=== PATIENT | female | born 1940 | race Native Hawaiian/Other Pacific Islander ===

== ENCOUNTER → 2020-11-11 | Day surgery (SDC) | payer MEDICARE, OTHER ==
[2020-11-09 11:04] LABS: COVID AG,FIA SOURCE NASOPHARYNGEAL
[~2020-11-11] MED LIST: AMLO-258 PO; ASPI-1450 PO; ATOR20TA86 PO; BRIM155OS OU; CHONDR SULF A SOD/HYALURONATE 1.05 ML KIT IO ONE; CRAN500T2 PO; DORZ210OS OU; EPINEPHrine 1:1,000 [1 MG/ML] AMP IM ONE; FURO20 PO; FentaNYL CITRATE PF 100 MCG/2 ML VIAL IVP ONE; HYDR50TA36 PO; KETOROLAC TROMETHAMINE 0.5% 5 ML OPHTHALMIC SOLUTION ONE; LIDOCAINE/PF 1% 2 ML VIAL IM ONE; LOSA50TA37 PO; METF-960 PO; METO25 PO; MIDAZOLAM HCL 2 MG/2 ML VIAL IVP ONE; MOXIFLOXACIN HCL 0.5% 3 ML OPHTHALMIC SOLUTION ONE; PHENYLEPHRINE HCL 2.5% 2 ML OPHTHALMIC SOLUTION ONE; POVIDONE-IODINE 10% 15 ML SOLUTION UD TP ONE; RINGERS SOLUTION,LACTATED 500 ML IV ONE; TRAV5DRO OU; TROPICAMIDE 1% 2 ML OPHTHALMIC SOLUTION ONE; VIT1TAB.9 PO
[2020-11-11] MEDS: KETOROLAC TROMETHAMINE 0.5% 5 ML OPHTHALMIC SOLUTION OD SCH ×3 (09:37→09:49)
[2020-11-11] MEDS: PHENYLEPHRINE HCL 2.5% 2 ML OPHTHALMIC SOLUTION OD SCH ×3 (09:38→09:49)
[2020-11-11] MEDS: TROPICAMIDE 1% 2 ML OPHTHALMIC SOLUTION OD SCH ×3 (09:38→09:49)
[2020-11-11] MEDS: MOXIFLOXACIN HCL 0.5% 3 ML OPHTHALMIC SOLUTION OD SCH ×3 (09:38→09:49)
[2020-11-11 09:46] LABS: GLUCOMETER DEV NAME(LOC) SDS.; GLUCOSE,POINT OF CARE 166 MG/DL (70-110)
== END | disposition home or self-care (01) ==
LOC: SURGERY 08:44
PROVIDERS: ATTEND Ophthalmology
DX: E11.36 Type 2 diabetes mellitus with diabetic cataract (principal); I10 Essential (primary) hypertension; H25.11 Age-related nuclear cataract, right eye; M17.11 Unilateral primary osteoarthritis, right knee; Z90.710 Acquired absence of both cervix and uterus; Z98.890 Other specified postprocedural states; Z87.442 Personal history of urinary calculi; E78.00 Pure hypercholesterolemia, unspecified; Z79.899 Other long term (current) drug therapy
CPT/HCPCS: 66984; 82962; 87426; 93005 ×2; A9575; C9803; J0171; J2250; J3010; J3490; J7120; V2632

== ENCOUNTER 2020-12-09 07:16 | Day surgery (SDC) | payer MEDICARE, OTHER ==
[2020-12-07 13:36] LABS: COVID AG,FIA SOURCE NASOPHARYNGEAL
[~2020-12-09] VITALS: Ht 149.9 cm; Wt 62.3 kg
[~2020-12-09 07:16] MED LIST changes: -CHONDR SULF A SOD/HYALURONATE 1.05 ML KIT IO ONE; -CRAN500T2 PO; +CRAN500T3 PO; -EPINEPHrine 1:1,000 [1 MG/ML] AMP IM ONE; -FentaNYL CITRATE PF 100 MCG/2 ML VIAL IVP ONE; -LIDOCAINE/PF 1% 2 ML VIAL IM ONE; -MIDAZOLAM HCL 2 MG/2 ML VIAL IVP ONE; +PHENYLEPHRINE HCL 2.5% 2 ML OPHTHALMIC SOLUTION OS SCH; -POVIDONE-IODINE 10% 15 ML SOLUTION UD TP ONE
[2020-12-09] MEDS ORDERED: FentaNYL CITRATE PF 100 MCG/2 ML VIAL IVP ONE (07:17)
[2020-12-09] MEDS ORDERED: MIDAZOLAM HCL 2 MG/2 ML VIAL IVP ONE (07:17)
[2020-12-09] MEDS ORDERED: RINGERS SOLUTION,LACTATED 500 ML IV ONE (07:30)
[2020-12-09] MEDS: KETOROLAC TROMETHAMINE 0.5% 5 ML OPHTHALMIC SOLUTION OS SCH ×3 (07:51→08:05)
[2020-12-09] MEDS: TROPICAMIDE 1% 2 ML OPHTHALMIC SOLUTION OS SCH ×3 (07:51→08:05)
[2020-12-09] MEDS: PHENYLEPHRINE HCL 2.5% 2 ML OPHTHALMIC SOLUTION OS SCH ×3 (07:51→08:05)
[2020-12-09] MEDS: MOXIFLOXACIN HCL 0.5% 3 ML OPHTHALMIC SOLUTION OS SCH ×3 (07:51→08:06)
[2020-12-09 08:03] LABS: GLUCOMETER DEV NAME(LOC) SDS.; GLUCOSE,POINT OF CARE 155 MG/DL (70-110)
[2020-12-09] MEDS ORDERED: POVIDONE-IODINE 10% 15 ML SOLUTION UD ONE (17:51)
[2020-12-09] MEDS ORDERED: LIDOCAINE/PF 1% 2 ML VIAL ONE (17:51)
[2020-12-09] MEDS ORDERED: EPINEPHrine 1:10,000 [1 MG/10 ML] SYRINGE ONE (17:51)
[2020-12-09] MEDS ORDERED: CHONDR SULF A SOD/HYALURONATE 1.05 ML KIT IO ONE (17:51)
[2020-12-09] MEDS ORDERED: BALANCED SALT 15 ML OPHTHALMIC IRRIG.SOLN ONE (17:51)
[2020-12-09] MEDS ORDERED: TETRACAINE HCL/PF 0.5% 4 ML OPHTHALMIC SOLUTION ONE (17:51)
== END 2020-12-09 09:35 | disposition home or self-care (01) ==
LOC: SURGERY 07:16
PROVIDERS: ATTEND Ophthalmology
DX: E11.36 Type 2 diabetes mellitus with diabetic cataract (principal); H25.12 Age-related nuclear cataract, left eye; I10 Essential (primary) hypertension; Z98.890 Other specified postprocedural states; Z79.899 Other long term (current) drug therapy
CPT/HCPCS: 66984; 82962; 87426; A9575; C9803; J0171; J2250; J3010; J3490; J7120; V2632